=== PATIENT | female | born 1960 | race Caucasian/White ===

== ENCOUNTER 2017-01-16 09:19 | Emergency (ER) | payer BC, OTHER ==
[2017-01-16 10:05] VITALS: BP 120/74
--- NOTE | 2017-01-16 11:01 | UC ---
Skin Complaint HPI - HPI Summary HPI Summary: Pt presents with c/o "itchy" area on right side lower back. 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 Pt states that the area continues to be "itchy" over the last 7 days and has noted that an area of redness has continued to spread on right lower back. - History of Current Complaint Chief Complaint: UCSkin Time Seen by Provider: 01/16/17 10:51 Stated Complaint: SKIN COMPLAINT ON BACK (SPREADING) Hx Obtained From: Patient ?: No Onset/Duration: Gradual Onset, Lasting Days - 7, Still Present, Worse Since - onset Skin Exposure Onset/Duration: Weeks Ago - 1 week ago, unsure if insect bite Timing: Constant Onset Severity: Mild Current Severity: Moderate Character: Pruritus, Redness Aggravating: Touch Alleviating: Unknown Associated Signs & Symptoms: Positive: Rash Related History: Other: - unsure of casue/exposure - Allergy/Home Medications Allergies/Adverse Reactions: Allergies Allergy/AdvReac Type Severity Reaction Status Date / Time Morphine Allergy Dizziness Verified 01/16/17 09:58 Home Medications: Home Medications PARoxetine HCL TAB* [Paxil TAB*] 10 mg PO DAILY 01/16/17 [History Confirmed ] Pravastatin Sodium [Pravachol] 80 mg PO DAILY 01/16/17 [History Confirmed ] hydrOXYzine PAMOATE CAP* [Vistaril CAP*] 25 mg PO BEDTIME 01/16/17 [History Confirmed 01/16/17] Review of Systems Constitutional: Negative Skin: Rash, Other - erythema, Eyes: Negative ENT: Negative Respiratory: Negative Cardiovascular: Negative Gastrointestinal: Negative Genitourinary: Negative Motor: Negative Neurovascular: Negative Musculoskeletal: Negative Neurological: Negative Psychological: Negative All Other Systems Reviewed And Are Negative: Yes PMH/Surg Hx/FS Hx/Imm Hx - Surgical History Surgical History: Yes Surgery Procedure, Year, and Place: hysterectomy, [place], 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 - Family History Known Family History: Positive: Cardiac Disease - Social History Occupation: Employed Full-time Lives: With Family Alcohol Use: None Substance Use Type: None Smoking Status (MU): Never Smoked Tobacco Have You Smoked in the Last Year: No Physical Exam Triage Information Reviewed: Yes Appearance: Well-Appearing Vital Signs: Initial Vital Signs Temp 98.6 F 01/16/17 10:01 Pulse 72 01/16/17 10:01 Resp 16 01/16/17 10:01 BP 120/74 01/16/17 10:01 Pulse Ox 100 01/16/17 10:01 Eye Exam: Normal ENT Exam: Normal Neck exam: Normal Respiratory Exam: Normal Cardiovascular Exam: Normal Abdominal Exam: Normal Musculoskeletal Exam: Normal Neurological Exam: Normal Psychological Exam: Normal Skin Exam: Other - nickel size "blood blister" right mid lower back with erythematous, mild selling with diameter of ~ 8 cm around blood blister. Course/Dx - Course Course Of Treatment: Pt is unsure about tick exposure or cause of large hive on right lower side of back. 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 Is outside daily and with high risk exposure to biting insects. - Differential Diagnoses - Skin Complaint Differential Diagnoses: Contact Dermatitis, Tick Born Illness, Urticaria - Diagnoses Provider Diagnoses: contact dermatitis. possible insect bite Discharge - Discharge Plan Condition: Stable Disposition: HOME Prescriptions: DOXYcycline CAP(*) [DOXYcycline 100MG CAP(*)] 100 mg PO BID #28 cap LoraTADine TAB(NF) [Claritin 10 MG TAB(NF)] 10 mg PO DAILY #7 tab predniSONE TAB* [Deltasone TAB*] 20 mg PO DAILY #4 tab Patient Education Materials: Urticaria (ED), Insect Bite or Sting (ED) Referrals: No Primary Care Phys,NOPCP [Primary Care Provider] - If Needed
== END 2017-01-16 11:13 | disposition home or self-care (01) ==
LOC: UCCORT 09:19
DX: L25.9 Unspecified contact dermatitis, unspecified cause (principal); Z88.5 Allergy status to narcotic agent; Z90.710 Acquired absence of both cervix and uterus; Z90.49 Acquired absence of other specified parts of digestive tract
CPT/HCPCS: 99202; G0463